=== PATIENT | female | born 1990 ===

== ENCOUNTER 2020-11-10 19:47 | Inpatient (IN) | payer OTHER ==
[2020-11-10] VITALS (12 sets, daily range): BP systolic 100–126; BP diastolic 51–76; PULSE 61–107; TEMP 98.9
[~2020-11-10] VITALS: Ht 167.6 cm; Wt 87.3 kg
--- NOTE | 2020-11-10 19:55 | NUR ---
G3L1 at 39 weeks and 3 days arrives to unit with complaint of contractions since 0600 this morning but recently got strong enough to come to hospital. Denies LOF or vaginal bleeding. Reports good movement. Denies headaches, blurry vision, or RUQ pain. Clean gown on. Pt oriented to room, bed in low and locked position, call light within reach. US and toco explained and applied. Vital signs obtained. Admission assessment started. SVE BBOW
--- NOTE | 2020-11-10 20:15 | NUR ---
18g IV started in left forearm with 1 attempt. Admission labs obtained off IV start. Lactated Ringers bolus infusing to gravity. Consents reviewed and signed with patient and spouse. All questions answered.
[2020-11-10 20:28] LABS: BASO % 0.1 % (0.0-2.0); EOS # 0.1 (0.0-0.7); EOS % 0.8 % (0-4.0); GRAN # 8.4 (1.4-6.5); GRAN % 75.2 % (42.2-75.2); HEMATOCRIT 37.7 % (37.0-47.0); HEMOGLOBIN 12.7 g/dl (12.5-16.0); LYMPH # 1.8 (1.2-3.4); LYMPH % 16.3 % (20.0-51.0); MEAN CELL VOLUME 91 fl (80.0-100.0); MEAN CORPUSCULAR HEMOGLOBIN 31 pg (27.0-31.0); MEAN CORPUSCULAR HGB CONC 34 g/dl (33.0-37.0); MEAN PLATELET VOLUME 11.2 fl (7.4-10.4); MONO # 0.8 (0.1-0.6); MONO % 7.2 % (1.7-9.3); PLATELET COUNT 220 K/mm3 (130-400); RED BLOOD COUNT 4.15 M/mm3 (4.10-5.30); REDCELL DISTRIBUTION WIDTH-CV 13.5 % (11.5-14.5)
--- NOTE | 2020-11-10 20:41 | NUR ---
2009 - Rah Dias CRNA called to bedside for epidural. 2029 - FITO Wesley at bedside. Pt positioned to sitting on edge of bed. Epidural procedure, risks, and benefits explained to patient, verbalized understanding. 2040 - Test dose at this time by FITO Wesley. Pt denies any adverse reactions. 2044 - Pt positioned to left side for comfort. Educated on safety precautions, call light within reach, bed in low and locked position. See anesthesia record.
--- NOTE | 2020-11-10 21:15 | NUR ---
Dr. Maza at bedside. AROM performed at this time. Large amount of clear fluid returned. SVE . Repositioned to wedge right for comfort.
--- NOTE | 2020-11-10 22:25 | NUR ---
2214 - late deceleration down to 70 bpm, pt reports feeling rectal pressure. Dr. Maza to bedside. SVE complete/+2. 2219 - Dr. Maza gowned and gloved at perineum. Nursery nurse called to bedside. Pt positioned in footplates and instructed on pushing techniques. Initial push at this time. 2224 - Spontaneous vaginal delivery of viable girl. Infant placed to mothers abdomen. Care of infant assumed to [address]. Cord clamped x [address] Maza and cut by FOB. Cord blood obtained. 2226 - Spontaneous delivery of intact placenta. Pitocin started at 333 ml/hour per protocol. Fundus firm and down 1 from umbilicus. First degree laceration repaired by Dr. Maza. Straight catheter at this time with 100 mL of urine out. EBL [address] Maza. 223 - Pericare provided. New chux beneath patient. Pt repositioned in bed for comfort. recovery started. See physician delivery note.
[2020-11-11] VITALS: BP 116/56; PULSE 74
[2020-11-11 00:30] VITALS: BP 109/59; PULSE 82
[2020-11-11] MEDS ORDERED: PRENATAL TABLET PO (01:33)
[2020-11-11 02:15] VITALS: BP 117/41; PULSE 65; TEMP 98.4
[2020-11-11 07:00] VITALS: BP 107/52; PULSE 61; TEMP 96.6
[2020-11-11] MEDS ORDERED: IBU600 MG PO (08:33)
--- NOTE | 2020-11-11 10:38 | NUR ---
Initial visit attempt; Family resting, Computer System Technician left card of congratulations and information regarding the availability of spiritual care at [facility]/ [address].
[2020-11-11 19:00] VITALS: BP 122/51; PULSE 73; TEMP 98
== END 2020-11-11 23:59 | disposition home or self-care (01) | DRG 807 ==
LOC: LDRO 19:47 → LDR 20:12 → OB 20:12
PROVIDERS: Obstetrics & Gynecology; ADMIT Obstetrics & Gynecology
PROC: 10E0XZZ Delivery of Products of Conception, External Approach (ICD-10-PCS; principal; 2020-11-10)
PROC: 0HQ9XZZ Repair Perineum Skin, External Approach (ICD-10-PCS; 2020-11-10)
DX: O26.893 Other specified pregnancy related conditions, third trimester (principal); Z37.0 Single live birth; O70.0 First degree perineal laceration during delivery; Z3A.39 39 weeks gestation of pregnancy; Z67.41 Type O blood, Rh negative; Z86.14 Personal history of Methicillin resistant Staphylococcus aureus infection
CPT/HCPCS: J2590; J2791; J2795; J7120